=== PATIENT | female | born 1990 | race American Indian/Alaskan Native ===

== ENCOUNTER 2018-04-04 19:45 | Emergency (ER) | payer OTHER ==
[2018-04-04 22:10] LABS: Basophils # (Auto) 0.1 K/mm3 (0.0-0.1); Basophils % (Auto) 0.6 % (0.0-1.8); Eosinophils # (Auto) 0.2 K/mm3 (0.0-0.4); Eosinophils % (Auto) 2.3 % (0.0-4.3); Hematocrit 39.7 % (30.3-42.9); Hemoglobin 13.1 gm/dl (10.1-14.3); Lymphocytes # (Auto) 4.2 K/mm3 (1.2-5.4); Lymphocytes % (Auto) 46.1 % (13.4-35.0); Mean Corpuscular HGB Conc 33 % (30-34); Mean Corpuscular Hemoglobin 26 pg (28-32); Mean Corpuscular Volume 80 fl (79-97); Monocytes # (Auto) 0.9 K/mm3 (0.0-0.8); Monocytes % (Auto) 9.8 % (0.0-7.3); Platelet Count 301 K/mm3 (140-440); Red Blood Count 4.98 M/mm3 (3.65-5.03); Red Cell Distribution Width 18.2 % (13.2-15.2)
[2018-04-05 00:39] LABS: Bilirubin,Urine NEG (Negative); Blood,Urine NEG (Negative); Color,Urine Yellow (Yellow); Mucus,Urine FEW /HPF; Protein,Urine <15 mg/dL mg/dL (Negative); Urobilinogen,Urine < 2.0 mg/dL (<2.0)
--- NOTE | 2018-04-05 05:23 | Emergency Department Report ---
ED General Adult HPI - General Chief complaint: Vaginal Bleeding Stated complaint: VAG BLEEDING Time Seen by Provider: 04/05/18 04:53 Source: patient Mode of arrival: Ambulatory Limitations: No Limitations - History of Present Illness Initial comments: Frequent heavy periods that are getting irregular she was noted also to have elevated blood pressure at triage which is now 146/90 out front in triage possibly whitecoat related to his 189/115. She is not having chest pain she denies any headache shadowing stiff neck she denied any shortness of breath she is here for intermittent heavy vaginal bleeding denies syncope denies soaking pads. She denied soaking the pads greater than 1 hour. She's not been getting dizzy or lightheaded with standing -: Gradual, days(s), unknown Radiation: non-radiation Severity scale (0 -10): 10 Consistency: intermittent Associated Symptoms: denies other symptoms. denies: confusion, chest pain, cough, diaphoresis, fever/chills, headaches, loss of appetite, malaise, nausea/ vomiting, rash, seizure, shortness of breath, syncope, weakness - Related Data Previous Rx's Medication Instructions Recorded Last Taken Type Prednisone [predniSONE 10 mg 10 mg PO .TAPER #1 tab.ds.pk 06/26/16 Unknown Rx (6-Day Pack, 21 Tabs)] Hydrochlorothiazide [Hctz] 12.5 mg PO QDAY #15 capsule 04/05/18 Unknown Rx Allergies Allergy/AdvReac Type Severity Reaction Status Date / Time No Known Allergies Allergy Unverified 06/26/16 13:29 ED Review of Systems ROS: Stated complaint: VAG BLEEDING Other details as noted in HPI Comment: All other systems reviewed and negative Constitutional: denies: diaphoresis, fever, malaise Eyes: denies: eye discharge, vision change ENT: denies: dental pain, hearing loss, epistaxis Respiratory: denies: shortness of breath, SOB with exertion, SOB at rest, stridor Cardiovascular: denies: chest pain, palpitations, edema, syncope, paroxysmal nocturnal dyspnea Gastrointestinal: denies: abdominal pain, nausea, vomiting, diarrhea, constipation, hematemesis, melena, hematochezia Genitourinary: abnormal menses. denies: urgency, dysuria, frequency, hematuria , discharge, dyspareunia, other Neurological: denies: headache, weakness, numbness, paresthesias, confusion, abnormal gait, vertigo Hematological/Lymphatic: denies: easy bruising ED Past Medical Hx - Past Medical History Previous Medical History?: Yes Hx Hypertension: Yes (gestational) Additional medical history: Eczema - Surgical History Past Surgical History?: No - Social History Smoking Status: Never Smoker - Medications Home Medications: Home Medications Medication Instructions Recorded Confirmed Last Taken Type Prednisone [predniSONE 10 mg 10 mg PO .TAPER #1 tab.ds.pk 06/26/16 Unknown Rx (6-Day Pack, 21 Tabs)] Hydrochlorothiazide [Hctz] 12.5 mg PO QDAY #15 capsule 04/05/18 Unknown Rx ED Physical Exam - General Limitations: No Limitations General appearance: alert, anxious - Head Head exam: Present: atraumatic, normocephalic - Eye Eye exam: Present: normal appearance, PERRL, EOMI - ENT ENT exam: Present: normal exam, normal orophraynx - Neck Neck exam: Present: normal inspection. Absent: tenderness, meningismus - Respiratory Respiratory exam: Present: normal lung sounds bilaterally. Absent: respiratory distress, wheezes, rales, rhonchi, stridor, chest wall tenderness, accessory muscle use, decreased breath sounds, prolonged expiratory - Cardiovascular Cardiovascular Exam: Present: regular rate, normal rhythm, normal heart sounds. Absent: systolic murmur, diastolic murmur, rubs, gallop - GI/Abdominal GI/Abdominal exam: Present: soft. Absent: distended, tenderness, guarding, rebound, rigid, mass, pulsatile mass - Extremities Exam Extremities exam: Present: normal inspection, normal capillary refill. Absent: pedal edema, joint swelling, calf tenderness - Back Exam Back exam: Present: normal inspection. Absent: tenderness, CVA tenderness (R), CVA tenderness (L), muscle spasm, paraspinal tenderness, vertebral tenderness - Neurological Exam Neurological exam: Present: alert, oriented X3, CN II-XII intact. Absent: motor sensory deficit - Psychiatric Psychiatric exam: Present: normal affect, anxious ED Course Vital Signs 04/04/18 04/04/18 04/05/18 20:31 21:38 01:21 Temperature 98.6 F 98.6 F 98.1 F Pulse Rate 74 74 72 Respiratory 16 18 18 Rate Blood Pressure 189/115 189/115 183/116 Blood Pressure [Right] O2 Sat by Pulse 100 100 99 Oximetry 04/05/18 04/05/18 04/05/18 01:33 01:53 02:00 Temperature Pulse Rate 56 L Respiratory 18 Rate Blood Pressure 174/117 Blood Pressure 180/119 [Right] O2 Sat by Pulse 100 100 Oximetry 04/05/18 04/05/18 04/05/18 02:15 02:30 02:45 Temperature Pulse Rate 63 64 87 Respiratory 12 12 10 L Rate Blood Pressure 174/117 152/104 152/104 Blood Pressure [Right] O2 Sat by Pulse 99 100 100 Oximetry 04/05/18 04/05/18 04/05/18 03:00 03:15 03:30 Temperature Pulse Rate 63 70 74 Respiratory 18 11 L 11 L Rate Blood Pressure 161/103 161/103 173/104 Blood Pressure [Right] O2 Sat by Pulse 100 100 100 Oximetry 04/05/18 04/05/18 04/05/18 03:45 04:00 04:15 Temperature Pulse Rate 68 66 Respiratory 12 11 L 12 Rate Blood Pressure 173/104 152/105 173/104 Blood Pressure [Right] O2 Sat by Pulse 100 100 100 Oximetry 04/05/18 04/05/18 04:30 04:45 Temperature Pulse Rate 61 67 Respiratory 11 L 12 Rate Blood Pressure 145/96 152/105 Blood Pressure [Right] O2 Sat by Pulse 100 99 Oximetry ED Medical Decision Making - Lab Data Result diagrams: 04/04/18 21:55 - Radiology Data Radiology results: report reviewed - Medical Decision Making Laboratory studies are unremarkable patient is not vital signs are stable she's not orthostatic she is having no acute abdomen at this time. She is still for outpatient follow-up the blood pressure did return to his baseline 146/95 when I was in the room. She is requesting for can restart her HCTZ that she was on which she was she will have a regular doctor follow this she is also requesting referral to [facility] for the heavy vaginal bleeding for further evaluation and cytology and possible hormonal control she verbalized understanding she also states she will return immediately if worse mildly elevated blood pressure but no signs of end organ damage Critical care attestation.: If time is entered above; I have spent that time in minutes in the direct care of this critically ill patient, excluding procedure time. ED Disposition Clinical Impression: Dysfunctional uterine bleeding, Hypertension Disposition: DC-01 TO HOME OR SELFCARE Is pt being admited?: No Condition: Stable Instructions: Hypertension (ED), Dysfunctional Uterine Bleeding (ED) Additional Instructions: Return immediately if new or alarming symptoms to his doctor listed her regular doctor or call 911 Prescriptions: Hydrochlorothiazide [Hctz] 12.5 mg PO QDAY #15 capsule Referrals: PRIMARY MD CLAUDE [Primary Care Provider] - 3-5 Days BRISEIDA WASHINGTON MD [Staff Physician] - 3-5 Days Time of Disposition: 05:24
[2018-04-05 05:29] VITALS: BP 146/98
== END 2018-04-05 05:50 | disposition home or self-care (01) ==
LOC: ED 19:45
DX: N93.8 Other specified abnormal uterine and vaginal bleeding (principal); I10 Essential (primary) hypertension
CPT/HCPCS: 36415; 81001; 84702; 84703; 85025; 86850; 86900; 86901; 93005; 93010; 99283

== ENCOUNTER 2019-01-19 22:46 | Emergency (ER) | payer OTHER ==
[2019-01-19] MEDS ORDERED: TYLENOL PO ONE (23:13)
[2019-01-19] MEDS ORDERED: TYLENOL ONE (23:16)
--- NOTE | 2019-01-20 00:21 | XRay Report ---
PROCEDURE: MRI LEFT FOREARM WITHOUT AND WITH CONTRAST TECHNIQUE: Magnetic resonance imaging of the LEFT forearm was performed using standard pulse sequenc es before and after the IV injection of paramagnetic contrast. CPT 96575 HISTORY: Trauma COMPARISONS: None . FINDINGS: Musculature: Normal. Mass lesions: None. Fluid collections: None. Neurovascular bundles: Normal. Abnormal contrast enhancement: None. IMPRESSION: Normal Examination. This document is electronically signed by Timo Wyatt MD., January 20 2019 12:18:46 AM ET
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
[2019-01-20] MEDS ORDERED: IBUPROFEN PO ONE ×2 (02:19→02:22)
[2019-01-20 02:48] VITALS: BP 144/96
== END 2019-01-20 02:45 | disposition home or self-care (01) ==
LOC: ED 22:46
DX: S46.912A Strain of unspecified muscle, fascia and tendon at shoulder and upper arm level, left arm, initial encounter (principal); I10 Essential (primary) hypertension; V49.49XA Driver injured in collision with other motor vehicles in traffic accident, initial encounter; X58.XXXA Exposure to other specified factors, initial encounter; Y93.89 Activity, other specified; Y92.488 Other paved roadways as the place of occurrence of the external cause; Y99.8 Other external cause status

== ENCOUNTER 2019-05-21 15:04 | Emergency (ER) | payer OTHER ==
--- NOTE | 2019-05-21 15:45 | Event Note ---
ED Screening Note Date of service: 05/21/19 Time: 15:42 ED Screening Note: This is a 28 y.o. F. that presents to the ER with increasing eczema flare. PMH gestational HTN and eczema This initial assessment/diagnostic orders/clinical plan/treatment(s) is/are subject to change based on patients health status, clinical progression and re- assessment by fellow clinical providers in the ED. Further treatment and workup at subsequent clinical providers discretion. Patient/guardian urged not to elope from the ED as their condition may be serious if not clinically assessed and managed. Initial orders include: ACC for further evaluation
--- NOTE | 2019-05-21 18:23 | Emergency Department Report ---
ED Rash HPI - HPI Chief Complaint: Skin Rash Stated Complaint: RASH Time Seen by Provider: 05/21/19 15:41 Duration: 1 week Location: Chest, Back, Upper Extremities Suspected Cause: Unknown Rash Symptoms: Yes Itching, Yes Peeling, No Facial Swelling, No Tongue/Oral Swelling, No Breathing Difficulties, No Choking Sensation, No Wheezing/Dyspnea, No Blistering, No Fever, No Lightheaded, No Malaise, No Myalgias Severity: moderate Other History: This is a 28 -year-old female that presents to the ER with increasing eczema rash to bilateral hands.past medical history of gestational hypertension and eczema. Patient states she is currently applying hydrocortisone with worsening symptoms. Patient reports pain is worse with movement or change in that there is a rash over entire body. She denies redness, fever. ED Review of Systems ROS: Stated complaint: RASH Other details as noted in HPI Constitutional: denies: chills, fever Respiratory: denies: cough, shortness of breath, wheezing Cardiovascular: denies: chest pain, palpitations Gastrointestinal: denies: abdominal pain, nausea, diarrhea Skin: rash (generalized rash). denies: lesions Neurological: denies: headache, weakness, paresthesias Psychiatric: denies: anxiety, depression ED Past Medical Hx - Past Medical History Previous Medical History?: Yes Hx Hypertension: Yes (gestational) Additional medical history: Eczema - Surgical History Past Surgical History?: No - Social History Smoking Status: Never Smoker Substance Use Type: Prescribed - Medications Home Medications: Home Medications Medication Instructions Recorded Confirmed Last Taken Type Cyclobenzaprine HCl [Flexeril 5 MG 5 mg PO QHS PRN #5 tab 01/20/19 Unknown Rx TAB] Ibuprofen [Ibu] 600 mg PO Q4-6H PRN #20 tablet 01/20/19 Unknown Rx Clindamycin [Clindamycin CAP] 300 mg PO Q8H #21 cap 05/21/19 Unknown Rx Prednisone [predniSONE 10 mg 10 mg PO .TAPER #1 tab.ds.pk 05/21/19 Unknown Rx (6-Day Pack, 21 Tabs)] Triamcinolone 0.1% [Kenalog 0.1% 1 applic TP TID #60 gm 05/21/19 Unknown Rx CREAM] hydroCHLOROthiazide [HCTZ] 12.5 mg PO QDAY #30 capsule 05/21/19 Unknown Rx Rash Exam - Exam General: Vital signs noted. No distress. Alert and acting appropriately. HEENT: No Periorbital Edema, No Conjuctival Injection, No Chemosis, No Perioral Edema, No Tongue Edema, No Uvular Edema, No Compromised Airway, No Drooling Lungs: Yes Good Air Exchange (Normal Breath Sounds), No Wheezes, No Ronchi, No Stridor, No Cough, No Labored Respirations, No Retractions, No Use of Accessory Muscles, No Other Abnormal Lung Sounds Heart: Yes Regular, No Murmur Skin: Yes Excoriations (bilateral anterior upper extremity, bilateral lower extremity, erythema), Yes Other (lichenified plaques to bilateral hands with depigmentation, erythema, and tenderness on palpation), No Urticarial Rash, No Maculopapular Rash, No Morbilliform rash, No Bulla(e), No Weeping, No Tenderness, No Erythema, No Edema, No Encrustations ED Course Vital Signs 05/21/19 15:28 Temperature 99.3 F Pulse Rate 79 Respiratory 20 Rate Blood Pressure 166/110 O2 Sat by Pulse 100 Oximetry ED Medical Decision Making - Medical Decision Making Patient was examined by me. Blood pressure elevated on arrival. Patient is in no acute distress. There is excoriations to bilateral upper extremity and lower extremity that is worse to bilateral hands with erythema which is suspected eczema flare. Given dexamethasone 10 mg IM and clonidine 0.1 mg by mouth. Patient will be reevaluated prior to discharge. Start antibiotics, steroids, and hydrochlorothiazide. Referral to a [employer] and primary care doctor for follow-up. Plan discussed with patient to discharge home and treat outpatient. He agrees with ER plan. Patient discharged home in stable condition. Follow up with PCP in 2-3 days. Critical care attestation.: If time is entered above; I have spent that time in minutes in the direct care of this critically ill patient, excluding procedure time. ED Disposition Clinical Impression: Asymptomatic hypertension Atopic dermatitis Qualifiers: Atopic dermatitis type: intrinsic Qualified Code(s): L20.84 - Intrinsic (allergic) eczema Cellulitis Qualifiers: Site of cellulitis: extremity Site of cellulitis of extremity: upper extremity Laterality: right Qualified Code(s): L03.113 - Cellulitis of right upper limb Disposition: - TO HOME OR SELFCARE Is pt being admited?: No Does the pt Need Aspirin: No Condition: Stable Instructions: Cellulitis (ED), Eczema (ED), Hypertension (ED) Additional Instructions: Complete full course of antibiotics and steroids as prescribed. Follow-up with the [employer] and primary care doctor from the referral list below. Moderate caffeine consumption is susceptible. Take medication daily for hypertension. Monitor your blood pressure twice a day for 1-2 weeks and today along with you to your follow-up appointment with primary care doctor. Follow- up with her primary care doctor within the next week. Prescriptions: Clindamycin [Clindamycin CAP] 300 mg PO Q8H #21 cap hydroCHLOROthiazide [HCTZ] 12.5 mg PO QDAY #30 capsule Triamcinolone 0.1% [Kenalog 0.1% CREAM] 1 applic TP TID #60 gm Prednisone [predniSONE 10 mg (6-Day Pack, 21 Tabs)] 10 mg PO .TAPER #1 tab.ds.pk Referrals: SHABNAM ESCOBAR MD [Primary Care Provider] - 3-5 Days [facility], [facility] [Provider Group] - 3-5 Days [facility] [Provider Group] - 3-5 Days [facility] [Provider Group] - 3-5 Days Forms: Work/School Release Form(ED) Time of Disposition: 20:25
[2019-05-21] MEDS ORDERED: CATAPRES PO ONE (19:14)
[2019-05-21] MEDS ORDERED: DECADRON IM ONE (19:14)
[2019-05-21 20:42] VITALS: BP 152/105
== END 2019-05-21 21:20 | disposition home or self-care (01) ==
LOC: ED 15:04
DX: L03.113 Cellulitis of right upper limb (principal); L20.84 Intrinsic (allergic) eczema; I10 Essential (primary) hypertension; Z79.1 Long term (current) use of non-steroidal anti-inflammatories (NSAID); Z79.899 Other long term (current) drug therapy
CPT/HCPCS: 96372; 99282; J1100

== ENCOUNTER 2019-08-16 07:30 | Emergency (ER) | payer OTHER ==
--- NOTE | 2019-08-16 08:14 | Emergency Department Report ---
ED Rash HPI - HPI Chief Complaint: Skin Rash Stated Complaint: BITES Time Seen by Provider: 08/16/19 07:56 Duration: 1 week Location: Upper Extremities, Lower Extremities Suspected Cause: Insect Rash Symptoms: Yes Itching, No Facial Swelling, No Tongue/Oral Swelling, No Breathing Difficulties, No Choking Sensation, No Wheezing/Dyspnea, No Peeling, No Blistering, No Fever, No Lightheaded, No Malaise, No Myalgias Severity: mild Other History: This is a 28-year-old -[place] female who presents to the emergency room with pruritic rash to bilateral upper and lower extremity for 1 week. Past medical history of eczema and hypertension. Patient states her daughter was treated for mites one week ago. Patient states she cleaned them back everything in her home but now she started to have similar rash. She reports pruritus as constant. She has not applied anything to rash. She denies fever, chills, redness, swelling. ED Review of Systems ROS: Stated complaint: BITES Other details as noted in HPI Constitutional: denies: chills, fever Respiratory: denies: cough, shortness of breath, wheezing Cardiovascular: denies: chest pain, palpitations Gastrointestinal: denies: abdominal pain, nausea, diarrhea Skin: rash. denies: lesions Neurological: denies: headache, weakness, paresthesias Psychiatric: denies: anxiety, depression ED Past Medical Hx - Past Medical History Hx Hypertension: Yes (gestational) Additional medical history: Eczema - Social History Smoking Status: Never Smoker Substance Use Type: Prescribed - Medications Home Medications: Home Medications Medication Instructions Recorded Confirmed Last Taken Type Cyclobenzaprine HCl [Flexeril 5 MG 5 mg PO QHS PRN #5 tab 01/20/19 Unknown Rx TAB] Ibuprofen [Ibu] 600 mg PO Q4-6H PRN #20 tablet 01/20/19 Unknown Rx Clindamycin [Clindamycin CAP] 300 mg PO Q8H #21 cap 05/21/19 Unknown Rx Prednisone [predniSONE 10 mg 10 mg PO .TAPER #1 tab.ds.pk 05/21/19 Unknown Rx (6-Day Pack, 21 Tabs)] Triamcinolone 0.1% [Kenalog 0.1% 1 applic TP TID #60 gm 05/21/19 Unknown Rx CREAM] hydroCHLOROthiazide [HCTZ] 12.5 mg PO QDAY #30 capsule 05/21/19 Unknown Rx Triamcinolone 0.1% [Kenalog 0.1% 1 applic TP TID #60 tube 08/16/19 Unknown Rx CREAM] hydrOXYzine PAMOATE [Vistaril] 25 mg PO Q6HR PRN #20 capsule 08/16/19 Unknown Rx Rash Exam - Exam General: Vital signs noted. No distress. Alert and acting appropriately. HEENT: No Periorbital Edema, No Conjuctival Injection, No Chemosis, No Perioral Edema, No Tongue Edema, No Uvular Edema, No Compromised Airway, No Drooling Lungs: Yes Good Air Exchange (Normal Breath Sounds), No Wheezes, No Ronchi, No Stridor, No Cough, No Labored Respirations, No Retractions, No Use of Accessory Muscles, No Other Abnormal Lung Sounds Heart: Yes Regular, No Murmur Skin: Yes Maculopapular Rash (multiple maculopapular rash, BLE & BUE, no surrounding erythema or swelling, nontender), No Urticarial Rash, No Morbilliform rash, No Bulla(e), No Excoriations, No Weeping, No Tenderness, No Erythema, No Edema, No Encrustations ED Course - Reevaluation(s) Reevaluation #1: 08/16/19 08:28 Blood pressure elevated. Nursing staff will retake VS Reevaluation #2: 08/16/19 08:49 Nursing staff informed me patient is no longer in room. ED Medical Decision Making - Medical Decision Making This is a 28-year-old female who presents to the emergency room with a pruritic rash to bilateral upper and lower extremity for 1 week. Past medical history of eczema and hypertension. Patient states she just got off work and haven't taken HCTZ. Patient examined by me. No distress noted. Vitals stable. Patient is drinking fluids w/o distress in ER. Physical assessment susceptible of insect contact dermatitis. Start triamcinolone cream and Vistaril. Patient not in room when nursing staff attempt to reevaluate BP. Patient eloped prior to treatment. Critical care attestation.: If time is entered above; I have spent that time in minutes in the direct care of this critically ill patient, excluding procedure time. ED Disposition Clinical Impression: Left against medical advice Disposition: DC- TO HOME OR SELFCARE Is pt being admited?: No Does the pt Need Aspirin: No Condition: Stable Instructions: Insect Bite or Sting (ED), Hypertension (ED) Additional Instructions: Apply a thin layer of triamcinolone cream twice a day for 5-10 days. Wash area after each diaper change. Follow up with primary care doctor in 24-72 hours. I have provided a referral to dermatology if symptoms are not improved in the next week. Prescriptions: Triamcinolone 0.1% [Kenalog 0.1% CREAM] 1 applic TP TID #60 tube hydrOXYzine PAMOATE [Vistaril] 25 mg PO Q6HR PRN #20 capsule PRN Reason: Itching Time of Disposition: 08:18
[2019-08-16 08:23] VITALS: BP 187/114
== END 2019-08-16 08:45 | disposition left against medical advice (07) ==
LOC: ED 07:30
DX: L29.9 Pruritus, unspecified (principal); I10 Essential (primary) hypertension; Z79.1 Long term (current) use of non-steroidal anti-inflammatories (NSAID); Z79.899 Other long term (current) drug therapy
CPT/HCPCS: 99281